=== PATIENT | male | born 1955 | race Caucasian/White ===

== ENCOUNTER → 2022-08-30 | Outpatient (REF) | payer MEDICAID, MEDICARE ==
[2022-08-30 19:36] LABS: HEMATOCRIT 39.5 % (42.0-52.0); HEMOGLOBIN 12.6 g/dl (13.5-17.5); MEAN CORPUSCULAR HEMOGLOBIN 30.6 pg (27.0-33.0); MEAN CORPUSCULAR HGB CONC 31.9 g/dl (32.0-36.5); MEAN CORPUSCULAR VOLUME 95.9 fl (80.0-96.0); PLATELET COUNT, AUTOMATED 270 10^3/uL (150-450); RED BLOOD COUNT 4.12 10^6/uL (4.30-6.10); WHITE BLOOD COUNT 10.4 10^3/uL (4.0-10.0)
[2022-08-30 20:25] LABS: ALBUMIN 4.2 GM/DL (3.2-5.2); BILIRUBIN,TOTAL 0.6 MG/DL (0.2-1.0); CALCIUM LEVEL 9.9 MG/DL (8.8-10.2); CHOLESTEROL RISK RATIO 2.687 (<5); CREATININE FOR GFR 1.77 MG/DL (0.70-1.30); FREE T4 0.9 NG/DL (0.76-1.46); GLOMERULAR FILTRATION RATE 41.1 (>49); POTASSIUM SERUM 5.8 MEQ/L (3.5-5.1); THYROID STIMULATING HORMONE 3.64 uIU/ML (0.358-3.740); TOTAL PROTEIN 8.2 GM/DL (6.4-8.2)
[2022-08-30 20:32] LABS: MALB URINE SIEMENS 5.9 MG/L; MAU/CREAT RATIO 13.1 MCG/MG (0.0-30.0)
== END ==
LOC: M SFHCADAM 11:42
PROVIDERS: ATTEND Family Medicine
DX: E11.9 Type 2 diabetes mellitus without complications (principal); E78.49 Other hyperlipidemia; M17.11 Unilateral primary osteoarthritis, right knee; Z12.5 Encounter for screening for malignant neoplasm of prostate; Z91.89 Other specified personal risk factors, not elsewhere classified
CPT/HCPCS: 80053; 80061; 82043; 82607; 82746; 83036; 84439; 84443; 85027; G0103

== ENCOUNTER → 2022-12-28 | Outpatient (REF) | payer OTHER, MEDICAID ==
[2022-12-28 16:31] LABS: HEMOGLOBIN 13.1 g/dl (13.5-17.5); MEAN CORPUSCULAR HEMOGLOBIN 30.4 pg (27.0-33.0); MEAN CORPUSCULAR VOLUME 95.1 fl (80.0-96.0); PLATELET COUNT, AUTOMATED 290 10^3/uL (150-450); RED BLOOD COUNT 4.31 10^6/uL (4.30-6.10); WHITE BLOOD COUNT 14.1 10^3/uL (4.0-10.0)
[2022-12-28 17:05] LABS: CALCIUM LEVEL 9.7 MG/DL (8.3-10.6); CREATININE FOR GFR 1.7 MG/DL (0.70-1.30); GLOMERULAR FILTRATION RATE 42.9 (>49); POTASSIUM SERUM 6.3 MMOL/L (3.5-5.1)
[2022-12-28 21:35] LABS: HEMOGLOBIN A1c 9.7 % (4.0-6.0)
== END ==
LOC: M SFHCADAM 10:18
PROVIDERS: ATTEND Family Medicine
DX: N18.32 Chronic kidney disease, stage 3b (principal); E11.22 Type 2 diabetes mellitus with diabetic chronic kidney disease

== ENCOUNTER → 2023-01-01 | Outpatient (REF) | payer OTHER, MEDICAID ==
[2023-01-01 13:15] LABS: CALCIUM LEVEL 9.7 MG/DL (8.3-10.6); CREATININE FOR GFR 2.05 MG/DL (0.70-1.30); GLOMERULAR FILTRATION RATE 34.5 (>49); POTASSIUM SERUM 5.3 MMOL/L (3.5-5.1)
== END ==
LOC: M SFHCADAM 08:35
PROVIDERS: ATTEND Family Medicine
DX: N18.32 Chronic kidney disease, stage 3b (principal)

== ENCOUNTER 2023-01-05 15:18 | Emergency (ER) | payer OTHER, MEDICAID ==
[~2023-01-05] VITALS: Ht 177.8 cm; Wt 78.6 kg
[2023-01-05 15:54] LABS: VENOUS BASE EXCESS -4.4 (-2.0-2.0); VENOUS HCO3 21.9 MEQ/L (23.0-27.0); VENOUS O2 SATURATION 79.4 % (60.0-80.0); VENOUS PARTIAL PRESSURE CO2 44.4 mmHg (38.0-50.0); VENOUS PARTIAL PRESSURE O2 49.7 mmHg (30.0-50.0); VENOUS STANDARD HCO3 20.5 MEQ/L; VENOUS TOTAL CO2 23.2 MEQ/L (24.0-28.0)
[2023-01-05 16:05] LABS: BASO # 0.1 10^3/uL (0.0-0.2); BASO % 0.6 % (0.0-1.0); EOS # 0.1 10^3/uL (0.0-0.5); EOS % 0.5 % (0.0-3.0); HEMATOCRIT 40.5 % (42.0-52.0); HEMOGLOBIN 13.6 g/dl (13.5-17.5); LYMPH # 3.7 10^3/uL (1.5-5.0); MEAN CORPUSCULAR HEMOGLOBIN 30.2 pg (27.0-33.0); MEAN CORPUSCULAR HGB CONC 33.6 g/dl (32.0-36.5); MEAN CORPUSCULAR VOLUME 89.8 fl (80.0-96.0); MONO # 1.1 10^3/uL (0.0-0.8); MONO % 6.9 % (2.0-8.0); NEUTROPHILS # 10.8 10^3/uL (1.5-8.5); NEUTROPHILS % 68.2 % (36.0-66.0); PLATELET COUNT, AUTOMATED 306 10^3/uL (150-450); RED BLOOD COUNT 4.51 10^6/uL (4.30-6.10); WHITE BLOOD COUNT 15.9 10^3/uL (4.0-10.0)
[2023-01-05] MEDS ORDERED: NS 2,360 ML in IV 1 EA IV ONE (16:15)
[2023-01-05 16:21] LABS: HEMOGLOBIN A1c 10.3 % (4.0-6.0)
[2023-01-05 16:35] LABS: RSV AMPLIFICATION NEGATIVE (NEGATIVE)
[2023-01-05 17:07] LABS: ALBUMIN 4.3 G/DL (3.2-5.2); BILIRUBIN,DIRECT 0.2 MG/DL (<0.4); BILIRUBIN,TOTAL 0.9 MG/DL (0.3-1.2); CALCIUM LEVEL 10.1 MG/DL (8.3-10.6); CREATININE FOR GFR 1.89 MG/DL (0.70-1.30); GLOMERULAR FILTRATION RATE 37.9 (>49); POTASSIUM SERUM 6.3 MMOL/L (3.5-5.1)
[2023-01-05] MEDS ORDERED: HumuLIN R (REGULAR) INSULIN (NovoLIN R) **100U/ML** PER UNIT IV ONE (17:30)
[2023-01-05] MEDS ORDERED: PATIROMER SORBITEX CALCIUM 8.4 GM POWDER PACKET (VELTASSA) PO ONE (17:30)
[2023-01-05] MEDS ORDERED: INSULIN REGULAR IN 0.9 % NACL 100 UNIT in IV 1 EA IV SCH ×2 (17:40)
[2023-01-05] MEDS ORDERED: INSULIN IV RATE CHANGE DOCUMENTATION ML/HR XX SCH (17:40)
[2023-01-05 19:55] LABS: CALCIUM LEVEL 8.6 MG/DL (8.3-10.6); CREATININE FOR GFR 1.61 MG/DL (0.70-1.30); GLOMERULAR FILTRATION RATE 45.7 (>49); POTASSIUM SERUM 4.1 MMOL/L (3.5-5.1)
[2023-01-05] MEDS ORDERED: HYDR50TA70 PO (20:55)
[2023-01-05] MEDS ORDERED: GLIP5TAB8 PO (20:55)
[2023-01-05] MEDS ORDERED: CARV6.25 PO (20:55)
[2023-01-05] MEDS ORDERED: METF500T13 PO ×2 (20:55)
[2023-01-05] MEDS ORDERED: JARD1TAB PO (20:55)
[2023-01-05] MEDS ORDERED: LISI5TAB11 PO (20:55)
[2023-01-05] MEDS ORDERED: TORS10TA3 PO (20:56)
[2023-01-05] MEDS ORDERED: SERT25TA21 PO (20:56)
[2023-01-05] MEDS ORDERED: LANTINJ4 SQ (20:56)
[2023-01-05] MEDS ORDERED: ATOR40TA75 PO (20:56)
[2023-01-05] MEDS ORDERED: ONETAB33 PO (20:58)
[2023-01-05] MEDS ORDERED: HOME MED LIST COMPLETE! XX SCH (21:00)
[2023-01-05 21:08] VITALS: BP 118/74
== END 2023-01-05 21:14 | disposition home or self-care (01) ==
LOC: EDBD 15:18 → M ED 15:18 → EDSEX 15:18 → M ED 21:14
DX: E87.5 Hyperkalemia (principal); E11.9 Type 2 diabetes mellitus without complications; I50.9 Heart failure, unspecified; I10 Essential (primary) hypertension; E78.5 Hyperlipidemia, unspecified; N18.30 Chronic kidney disease, stage 3 unspecified; Z87.891 Personal history of nicotine dependence
CPT/HCPCS: 80047; 80048; 80076; 81000; 81015; 82010; 82803; 83036; 83690; 83930; 85025; 87631; 93005; 93041; 94760; 96361; 96374; 99285; J1815

== ENCOUNTER → 2023-01-29 | Outpatient (REF) | payer OTHER, MEDICAID ==
[~2023-01-29] MED LIST: ATOR40TA75 PO; CARV6.25 PO; GLIP5TAB8 PO; HYDR50TA70 PO; JARD1TAB PO; LANTINJ4 SQ; LISI5TAB11 PO; METF500T13 PO; ONETAB33 PO; SERT25TA21 PO; TORS10TA3 PO
[2023-01-29 14:22] LABS: CALCIUM LEVEL 9.2 MG/DL (8.3-10.6); CREATININE FOR GFR 2.27 MG/DL (0.70-1.30); GLOMERULAR FILTRATION RATE 30.7 (>49); POTASSIUM SERUM 5.5 MMOL/L (3.5-5.1)
== END ==
LOC: M SFHCADAM 09:07
PROVIDERS: ATTEND Family Medicine
DX: E11.22 Type 2 diabetes mellitus with diabetic chronic kidney disease (principal); N18.32 Chronic kidney disease, stage 3b

== ENCOUNTER → 2023-02-28 | Outpatient (REF) | payer MEDICARE, MEDICAID ==
[2023-02-28 15:06] LABS: CALCIUM LEVEL 8.9 MG/DL (8.3-10.6); CREATININE FOR GFR 2.12 MG/DL (0.70-1.30); GLOMERULAR FILTRATION RATE 33.2 (>49); POTASSIUM SERUM 4.3 MMOL/L (3.5-5.1)
== END ==
LOC: M SFHCADAM 10:42
PROVIDERS: ATTEND Physician Assistant
DX: E11.22 Type 2 diabetes mellitus with diabetic chronic kidney disease (principal); N18.32 Chronic kidney disease, stage 3b

== ENCOUNTER → 2023-03-27 | Outpatient (REF) | payer MEDICARE, MEDICAID ==
[2023-03-27 14:09] LABS: CREATININE FOR GFR 1.67 MG/DL (0.70-1.30); GLOMERULAR FILTRATION RATE 43.8 (>49); POTASSIUM SERUM 5.1 MMOL/L (3.5-5.1)
[2023-03-27 14:27] LABS: HEMOGLOBIN A1c 8.2 % (4.0-6.0)
== END ==
LOC: M SFHCADAM 11:06
PROVIDERS: ATTEND Family Medicine
DX: N18.32 Chronic kidney disease, stage 3b (principal); E11.22 Type 2 diabetes mellitus with diabetic chronic kidney disease

== ENCOUNTER → 2023-04-04 | Outpatient (CLI) | payer MEDICARE, MEDICAID | LOC: M CARPUL 14:22 | PROVIDERS: ATTEND Physician Assistant | DX: I36.0 Nonrheumatic tricuspid (valve) stenosis (principal) ==

== ENCOUNTER → 2023-07-25 | Outpatient (REF) | payer MEDICARE, MEDICAID ==
[2023-07-25 13:19] LABS: CALCIUM LEVEL 9.1 MG/DL (8.3-10.6); CREATININE FOR GFR 1.41 MG/DL (0.70-1.30); GLOMERULAR FILTRATION RATE 53.2 (>49); POTASSIUM SERUM 4.9 MMOL/L (3.5-5.1)
[2023-07-25 13:34] LABS: HEMOGLOBIN A1c 7.3 % (4.0-6.0)
== END ==
LOC: M SFHCADAM 10:04
PROVIDERS: ATTEND Family Medicine
DX: E11.9 Type 2 diabetes mellitus without complications (principal); N18.32 Chronic kidney disease, stage 3b

== ENCOUNTER → 2023-10-31 | Outpatient (REF) | payer MEDICARE, MEDICAID ==
[~2023-10-31] MED LIST changes: +GLIP5TAB17 PO; -GLIP5TAB8 PO
[2023-10-31 14:17] LABS: HEMATOCRIT 42.7 % (42.0-52.0); HEMOGLOBIN 14.1 g/dl (13.5-17.5); MEAN CORPUSCULAR HEMOGLOBIN 31.6 pg (27.0-33.0); MEAN CORPUSCULAR VOLUME 95.7 fl (80.0-96.0); PLATELET COUNT, AUTOMATED 258 10^3/uL (150-450); RED BLOOD COUNT 4.46 10^6/uL (4.30-6.10); WHITE BLOOD COUNT 12.2 10^3/uL (4.0-10.0)
[2023-10-31 14:39] LABS: CREATININE, URINE 66.4 MG/DL
[2023-10-31 14:43] LABS: ALBUMIN 3.9 G/DL (3.2-5.2); BILIRUBIN,TOTAL 0.6 MG/DL (0.3-1.2); CALCIUM LEVEL 9.2 MG/DL (8.3-10.6); CHOLESTEROL RISK RATIO 3.23 (<5); CREATININE FOR GFR 1.43 MG/DL (0.70-1.30); GLOMERULAR FILTRATION RATE 52.2 (>49); HDL CHOLESTEROL 43.3 MG/DL (>40); LDL CHOLESTEROL 52.9 MG/DL (<100); NON-HDL-C 96.7 MG/DL; POTASSIUM SERUM 4.4 MMOL/L (3.5-5.1); TOTAL PROTEIN 7.1 G/DL (5.7-8.2)
== END ==
LOC: M SFHCADAM 09:08
PROVIDERS: ATTEND Family Medicine
DX: I11.9 Hypertensive heart disease without heart failure (principal); N18.32 Chronic kidney disease, stage 3b; E78.49 Other hyperlipidemia; E11.9 Type 2 diabetes mellitus without complications

== ENCOUNTER → 2024-03-10 | Outpatient (REF) | payer MEDICARE, MEDICAID ==
[2024-03-10 13:03] LABS: CALCIUM LEVEL 8.8 MG/DL (8.3-10.6); CREATININE FOR GFR 1.3 MG/DL (0.70-1.30); GLOMERULAR FILTRATION RATE 58.3 (>49); POTASSIUM SERUM 4.4 MMOL/L (3.5-5.1)
[2024-03-10 13:30] LABS: HEMOGLOBIN A1c 8.1 % (4.0-6.0)
== END ==
LOC: M SFHCADAM 09:20
PROVIDERS: ATTEND Family Medicine
DX: E11.9 Type 2 diabetes mellitus without complications (principal)

== ENCOUNTER → 2024-06-17 | Outpatient (REF) | payer MEDICARE, MEDICAID ==
[2024-06-17 18:40] LABS: CALCIUM LEVEL 8.9 MG/DL (8.3-10.6); CREATININE FOR GFR 1.64 MG/DL (0.70-1.30); GLOMERULAR FILTRATION RATE 44.6 (>49); POTASSIUM SERUM 4.7 MMOL/L (3.5-5.1)
== END ==
LOC: M SFHCADAM 11:02
PROVIDERS: ATTEND Family Medicine
DX: E11.9 Type 2 diabetes mellitus without complications (principal)

== ENCOUNTER → 2024-09-23 | Outpatient (REF) | payer MEDICARE, MEDICAID ==
[2024-09-23 18:33] LABS: CALCIUM LEVEL 9.8 MG/DL (8.3-10.6); CREATININE FOR GFR 1.83 MG/DL (0.70-1.30); GLOMERULAR FILTRATION RATE 39.2 (>42); POTASSIUM SERUM 4.9 MMOL/L (3.5-5.1)
[2024-09-23 19:23] LABS: HEMOGLOBIN A1c 7.8 % (4.0-6.0)
== END ==
LOC: M SFHCADAM 15:16
PROVIDERS: ATTEND Family Medicine
DX: E11.22 Type 2 diabetes mellitus with diabetic chronic kidney disease (principal)

== ENCOUNTER → 2024-10-22 | Outpatient (CLI) | payer MEDICARE, MEDICAID | LOC: M RAD 14:26 | PROVIDERS: ATTEND Family Medicine | DX: N18.32 Chronic kidney disease, stage 3b (principal) ==

== ENCOUNTER → 2025-01-22 | Outpatient (REF) | payer MEDICARE, MEDICAID ==
[2025-01-22 18:39] LABS: HEMATOCRIT 40.7 % (42.0-52.0); HEMOGLOBIN 13.1 g/dl (13.5-17.5); MEAN CORPUSCULAR HGB CONC 32.2 g/dl (32.0-36.5); MEAN CORPUSCULAR VOLUME 96.2 fl (80.0-96.0); PLATELET COUNT, AUTOMATED 249 10^3/uL (150-450); RED BLOOD COUNT 4.23 10^6/uL (4.30-6.10); WHITE BLOOD COUNT 11.4 10^3/uL (4.0-10.0)
[2025-01-22 18:44] LABS: ALBUMIN 3.9 G/DL (3.2-5.2); BILIRUBIN,TOTAL 0.8 MG/DL (0.3-1.2); CALCIUM LEVEL 9.1 MG/DL (8.3-10.6); CREATININE FOR GFR 1.68 MG/DL (0.70-1.30); GLOMERULAR FILTRATION RATE 43.2 (>42); POTASSIUM SERUM 5.3 MMOL/L (3.5-5.1); TOTAL PROTEIN 7.5 G/DL (5.7-8.2)
[2025-01-22 19:12] LABS: HEMOGLOBIN A1c 7.9 % (4.0-6.0)
== END ==
LOC: M SFHCADAM 11:16
PROVIDERS: ATTEND Family Medicine
DX: N18.32 Chronic kidney disease, stage 3b (principal); E11.9 Type 2 diabetes mellitus without complications

== ENCOUNTER → 2025-02-23 | Outpatient (CLI) | payer MEDICARE, MEDICAID | LOC: M RAD 08:27 | PROVIDERS: ATTEND Internal Medicine Nephrology | DX: I70.1 Atherosclerosis of renal artery (principal) ==

== ENCOUNTER → 2025-03-17 | Outpatient (CLI) | payer MEDICARE, MEDICAID ==
[2025-03-17 11:34] LABS: CREATININE FOR GFR 1.61 MG/DL (0.70-1.30); GLOMERULAR FILTRATION RATE 45.7 (>42); POTASSIUM SERUM 4.7 MMOL/L (3.5-5.1)
== END ==
LOC: M LAB 10:42
PROVIDERS: ATTEND Radiology Diagnostic Radiology
DX: I70.1 Atherosclerosis of renal artery (principal)

== ENCOUNTER → 2025-03-27 | Outpatient (REF) | payer MEDICARE, MEDICAID ==
[2025-03-27 13:47] LABS: APPEARANCE, URINE CLEAR (CLEAR); BACTERIA, URINE AUTO NEGATIVE (NEGATIVE); BILIRUBIN, URINE AUTO NEGATIVE (NEGATIVE); BLOOD, URINE BLOOD NEGATIVE (NEGATIVE); COLOR, URINE YELLOW (YELLOW); GLUCOSE, URINE (UA) AUTO 3+ mg/dL (NEGATIVE); KETONE, URINE AUTO NEGATIVE (NEGATIVE); LEUKOCYTE ESTERASE, URINE AUTO NEGATIVE (NEGATIVE); NITRITE, URINE AUTO NEGATIVE (NEGATIVE); PROTEIN, URINE AUTO NEGATIVE (NEGATIVE); RBC, URINE AUTO 0 /HPF (0-3); SPECIFIC GRAVITY URINE AUTO 1.011 (1.002-1.035); SQUAMOUS EPITHELIAL CELL UR AU 0 /HPF (0-6); UROBILINOGEN, URINE AUTO 0.2 mg/dL (0.0-2.0); WBC, URINE AUTO 0 /HPF (0-3)
== END ==
LOC: M SFHCADAM 09:43
PROVIDERS: ATTEND Family Medicine
DX: R10.9 Unspecified abdominal pain (principal)

== ENCOUNTER → 2025-06-10 | Outpatient (POV) | payer MEDICARE, MEDICAID ==
[~2025-06-10] VITALS: Ht 177.8 cm; Wt 76.7 kg
[2025-06-10 14:45] VITALS: BP 104/64; O2SAT 98
== END ==
LOC: M IRPOV 13:41
PROVIDERS: ATTEND Registered Nurse School
DX: I70.1 Atherosclerosis of renal artery (principal); Z79.4 Long term (current) use of insulin; Z79.899 Other long term (current) drug therapy; Z87.891 Personal history of nicotine dependence

== ENCOUNTER → 2025-07-21 | Outpatient (REF) | payer MEDICARE, MEDICAID ==
[2025-07-21 14:36] LABS: ESTIMATED AVERAGE GLUCOSE 223.0 MG/DL (60-110)
[2025-07-21 14:53] LABS: CALCIUM LEVEL 9.3 MG/DL (8.3-10.6); CARBON DIOXIDE LEVEL 27.0 MMOL/L (20-31); CHLORIDE LEVEL 106.0 MMOL/L (98-107); CREATININE FOR GFR 1.61 MG/DL (0.70-1.30); GLOMERULAR FILTRATION RATE 45.7 (>42); POTASSIUM SERUM 4.5 MMOL/L (3.5-5.1); SODIUM LEVEL 143.0 MMOL/L (136-145)
== END ==
LOC: M SFHCADAM 10:33
PROVIDERS: ATTEND Family Medicine
DX: E11.9 Type 2 diabetes mellitus without complications (principal)

== ENCOUNTER → 2025-07-23 | Outpatient (REF) | payer MEDICARE, MEDICAID ==
[2025-07-23 13:29] LABS: PSA SCREENING 0.55 NG/ML (< 4.00)
[2025-07-23 13:30] LABS: CPK CREATINE PHOSPHOKINASE 209 U/L (46-171)
[2025-07-23 13:31] LABS: C REACTIVE PROTEIN QUANTITATIV < 0.50 MG/DL (<1.0)
[2025-07-23 13:32] LABS: FREE T4 1.18 NG/DL (0.89-1.76)
== END ==
LOC: M SFHCADAM 08:58
PROVIDERS: ATTEND Family Medicine
DX: M79.18 Myalgia, other site (principal); Z12.5 Encounter for screening for malignant neoplasm of prostate
CPT/HCPCS: 82085; 82550; 84439; 84443; 86140; G0103